=== PATIENT | female | born 1985 | race Caucasian/White ===

== ENCOUNTER 2018-08-29 23:38 | Emergency (ER) | payer BC ==
[~2018-08-29] VITALS: Ht 167.6 cm; Wt 104.3 kg
[2018-08-29 23:46] VITALS: BP 136/60
--- NOTE | 2018-08-29 23:54 | PHYS DOC ---
Adult General Chief Complaint Chief Complaint: SORE THROAT HPI HPI Patient is a 32 year old female who presents to the emergency room with complaints of a bilateral ear pain, sore throat and hoarse voice today. Patient states she felt like she had a fever however has not measured a temperature. She denies any shortness of breath, nausea, vomiting, diarrhea, abdominal pain, or rash. Patient states last week she had a tooth extracted and was recently on antibiotics for a dental infection. Review of Systems Review of Systems Constitutional: reports tactile fever and fatigue today Eyes: Denies change in visual acuity, redness, or eye pain [] HENT: Denies nasal congestion; reports sore throat and bilateral ear pain today[ ] Respiratory: Denies cough or shortness of breath, reports hoarse voice today [] GI: Denies abdominal pain, nausea, vomiting, or diarrhea [] Integument: Denies rash or skin lesions [] Neurologic: Denies headache, focal weakness or sensory changes [] All other systems were reviewed and found to be within normal limits, except as documented in this note. Allergies Allergies Allergies Coded Allergies Type Severity Reaction Last Updated Verified tramadol Allergy Severe sensation of bugs 08/29/18 Yes Physical Exam Physical Exam Constitutional: Well developed, well nourished, no acute distress, non-toxic appearance, obese. [] HENT: Normocephalic, atraumatic, bilateral external ears normal, bilateral TMs bulging with cloudy fluid and erythema without perforation, erythema of posterior pharynx with 2+ tonsils bilat and mild exudate bilat, oropharynx moist , nose normal. [] Eyes: PERRLA, conjunctiva normal, no discharge. [] Neck: Normal range of motion, no tenderness, supple, no stridor. [] Cardiovascular:Heart rate regular rhythm, no murmur [] Lungs & Thorax: Bilateral breath sounds clear to auscultation [] Skin: Warm, dry, no erythema, no rash. [] Extremities: No cyanosis, no clubbing, ROM intact Neurologic: Alert and oriented X 3, normal motor function, normal sensory function, no focal deficits noted. [] Psychologic: Affect normal, judgement normal, mood normal. [] EKG EKG [] Radiology/Procedures Radiology/Procedures rapid strep negative[] Course & Med Decision Making Course & Med Decision Making Pertinent Labs and Imaging studies reviewed. (See chart for details) Dx: suppurative OM of bilateral ears without perforation, pharyngitis Rx for augmentin. May take tylenol or ibuprofen as needed for pain/fever. Warm salt water gargles as needed for relief of sore throat. Increase clear fluids. Follow up with PCP next week, return to ER if symptoms worsen. [] Dragon Disclaimer Dragon Disclaimer This electronic medical record was generated, in whole or in part, using a voice recognition dictation system. Departure Departure Impression: Primary Impression: Suppurative otitis media of both ears without spontaneous rupture of tympanic membrane Additional Impression: Pharyngitis Disposition: HOME, SELF-CARE Condition: STABLE Patient Instructions: Otitis Media, Adult, [id number], Viral and Bacterial Pharyngitis, [id number] Additional Instructions: Fill prescription and use as directed. May take Tylenol or ibuprofen as needed for pain or fever. Warm salt water gargles as needed for relief of sore throat. Follow-up with her primary care doctor next week. Return to the emergency room if your symptoms worsen. Scripts Amoxicillin/Potassium Clav (AUGMENTIN [id number] TABLET) 1 Each Tablet 1 TAB PO BID, #20 TAB Prov: LIBAN MARTINEZ BURRITO MAKER 08/30/18 Problem Qualifiers Primary Impression: Suppurative otitis media of both ears without spontaneous rupture of tympanic membrane Chronicity: acute Recurrence: not specified as recurrent Qualified Codes: H66.003 - Acute suppurative otitis media without spontaneous rupture of ear drum , bilateral Additional Impression: Pharyngitis Pharyngitis/tonsillitis etiology: unspecified etiology Qualified Codes: J02.9 - Acute pharyngitis, unspecified LIBAN MARTINEZ BURRITO MAKER Aug 29, 2018 23:54
[2018-08-30] MEDS ORDERED: AMOX1TAB61 PO (00:11)
== END 2018-08-30 00:19 | disposition home or self-care (01) ==
LOC: ER 23:38
DX: H66.003 Acute suppurative otitis media without spontaneous rupture of ear drum, bilateral (principal); J02.9 Acute pharyngitis, unspecified; Z88.5 Allergy status to narcotic agent
CPT/HCPCS: 87070; 87880; 99283